=== PATIENT | male | born 1995 | race Caucasian/White ===

== ENCOUNTER 2021-08-20 19:08 | Emergency (ER) | payer BC ==
[~2021-08-20] VITALS: Ht 175.3 cm; Wt 90.7 kg
[2021-08-20 19:12] VITALS: BP 148/81
== END 2021-08-20 20:28 | disposition home or self-care (01) ==
LOC: ER 19:08
DX: S61.012A Laceration without foreign body of left thumb without damage to nail, initial encounter (principal); X50.9XXA Other and unspecified overexertion or strenuous movements or postures, initial encounter; Y93.89 Activity, other specified; Y92.89 Other specified places as the place of occurrence of the external cause; Y99.8 Other external cause status